=== PATIENT | female | born 1940 | race Caucasian/White ===

== ENCOUNTER 2016-12-02 15:49 | Emergency (ER) | payer MEDICARE, BC ==
--- NOTE | 2016-12-02 17:18 | EDM.PDOC ---
ED HISTORY OF PRESENT ILLNESS - General Chief Complaint: Respiratory Problem Stated Complaint: WEAKNESS, DIZZY WHEN WALKING Time Seen by Provider: 12/02/16 17:00 Source: Reports: Patient History Limitations: Reports: No limitations - History of Present Illness INITIAL COMMENTS - FREE TEXT/NARRATIVE: 76-year-old female arrives with weakness and malaise for the past 5-6 days, worse over the last 24 hours. It's much worse with activity, along with some vague shoulder and back discomfort. She has a fairly extensive cardiac history with an aortic valve replacement in 1998, and a double bypass in 2016. She's had no chest pain, abdominal pain, nausea or vomiting. She denies palpitations. No fever or chills or recent illness. Severity: moderate Worsens with: Reports: Other (Her symptoms are worse with activity, today she had difficulty walking down a long hallway.) Associated Symptoms: Reports: shortness of breath (Especially with activity), weakness (Especially in her legs). Denies: chest pain, fever/chills, headaches , loss of appetite - Related Data Allergies/ADRs: Allergies Allergy/AdvReac Type Severity Reaction Status Date / Time Penicillins Allergy Cannot Verified 12/02/16 16:27 Remember propoxyphene [From Darvon] Allergy Nausea and Verified 12/02/16 16:27 Vomiting Home Meds: Home Meds Calcium Carbonate [Calcium] 1 tab PO DAILY 12/02/16 [History] Cholecalciferol (Vitamin D3) [D3-2000] 1 tab PO DAILY 12/02/16 [History] Furosemide [Lasix] 40 mg PO DAILY 12/02/16 [History] Metoprolol Tartrate [Lopressor] 50 mg PO BID 12/02/16 [History] Valsartan/Hydrochlorothiazide [Diovan Hct 320-25 mg Tablet] 1 tab PO DAILY 12/02 [History] Warfarin [Coumadin] 2.5 mg PO SUTUWETHFRSA 12/02/16 [History] Warfarin [Coumadin] 5 mg PO MO 12/02/16 [History] amLODIPine [Norvasc] 5 mg PO PCDINNER 12/02/16 [History] atorvaSTATin [Lipitor] 40 mg PO Q48H 12/02/16 [History] Past Medical History HEENT History: Reports: None Cardiovascular History: Reports: Hypertension Respiratory History: Reports: SOB Gastrointestinal History: Reports: Chronic constipation [employer] History: Reports: Other (see below) Other OB/BYN History: hysterectomy Endocrine/Metabolic History: Reports: Obesity/BMI 30+ Oncologic (Cancer) History: Reports: None - Infectious Disease History Infectious Disease History: Reports: Chicken pox, Measles - Past Surgical History HEENT Surgical History: Reports: Cataract surgery Cardiovascular Surgical History: Reports: Coronary artery bypass, Other (see below) Other Cardiovascular Surgeries/Procedures: 1992 aortic valve replaced. double bypass Respiratory Surgical History: Reports: None GI Surgical History: Reports: None Endocrine Surgical History: Reports: None Oncologic Surgical History: Reports: Biopsy of breast Dermatological Surgical History: Reports: None Social & Family History - Tobacco Use Smoking Status *Q: Never Smoker Second Hand Smoke Exposure: No - Caffeine Use Caffeine Use: Reports: Coffee - Recreational Drug Use Recreational Drug Use: No ED ROS GENERAL - Review of Systems Review Of Systems: See Below Constitutional: Reports: malaise, weakness. Denies: fever, chills HEENT: Reports: No symptoms Respiratory: Reports: shortness of breath (Especially with activity) Cardiovascular: Denies: Chest pain, Palpitations GI/Abdominal: Denies: Abdominal pain, Nausea, Vomiting : Reports: no symptoms Musculoskeletal: Reports: no symptoms Skin: Reports: no symptoms Neurological: Reports: weakness. Denies: dizziness, headache, paresthesia, syncope Psychiatric: Reports: No symptoms ED EXAM, GENERAL - Physical Exam Exam: See Below Exam Limited By: No limitations General Appearance: alert, no apparent distress Eye Exam: bilateral eye: EOMI Respiratory/Chest: no respiratory distress, lungs clear Cardiovascular: regular rate, rhythm, bradycardia, systolic murmur (1+ systolic murmur, holosystolic) GI/Abdominal: soft, non tender Back Exam: normal inspection Extremities: pedal edema (Patient has symmetric bilateral nonpitting swelling of the lower extremities) Neurological: alert, oriented, no motor/sensory deficits Psychiatric: normal affect, normal mood Skin Exam: Warm, Dry Course - Vital Signs Last Recorded V/S: Last Vital Signs Temp 99.1 F 12/02/16 16:21 Pulse 34 L 12/02/16 19:22 Resp 16 12/02/16 19:22 BP 154/55 H 12/02/16 19:22 Pulse Ox 95 12/02/16 18:00 - Orders/Labs/Meds Orders: Active Orders 24 hr Category Date Time Status EKG Documentation Completion [RC] ASDIRECTED Care 12/02/16 17:12 Active Chest 2V [CR] Routine Exams 12/02/16 17:12 Taken EKG 12 Lead [EK] Routine Ther 12/02/16 17:12 Ordered Labs: Laboratory Tests 12/02/16 12/02/16 12/02/16 Range/Units 17:12 17:12 17:12 WBC 8.1 (4.5-11.0) K/uL RBC 3.74 (3.30-5.50) M/uL Hgb 10.0 L (12.0-15.0) g/dL Hct 33.0 L (36.0-48.0) % MCV 88 (80-98) fL MCH 27 (27-31) pg MCHC 30 L (32-36) % Plt Count 221 (150-400) K/uL Neut % (Auto) 78 H (36-66) % Lymph % (Auto) 11 L (24-44) % [place] % (Auto) 10 H (2-6) % Eos % (Auto) 1 L (2-4) % Baso % (Auto) 1 (0-1) % PT 27.0 H (9.5-12.0) sec INR 2.48 H (0.80-1.20) Sodium 143 (140-148) mmol/L Potassium 4.4 (3.6-5.2) mmol/L Chloride 107 (100-108) mmol/L Carbon Dioxide 27 (21-32) mmol/L Anion Gap 9.0 (5.0-14.0) mmol/L BUN 52 H (7-18) mg/dL Creatinine 1.8 H (0.6-1.0) mg/dL Est Cr Clr Drug Dosing 21.03 mL/min Estimated GFR (MDRD) 27 L (>60) Glucose 95 (74-106) mg/dL Calcium 8.8 (8.5-10.1) mg/dL Total Bilirubin 0.3 (0.2-1.0) mg/dL AST 63 H (15-37) U/L ALT 84 H (12-78) U/L Alkaline Phosphatase 109 (46-116) U/L Troponin I < 0.017 (0.000-0.056) ng/mL Total Protein 7.4 (6.4-8.2) g/dL Albumin 3.6 (3.4-5.0) g/dL Globulin 3.8 H (2.3-3.5) g/dL Albumin/Globulin Ratio 1.0 L (1.2-2.2) - Re-Assessments/Exams Free Text/Narrative Re-Assessment/Exam: 12/02/16 17:17 When I went into the patient's room her monitor showed a type II block which resolved while I was talking to her. An EKG was obtained, along with a CBC, CMP , troponin, ProTime and two-view chest x-ray. Patient was kept on the monitor to see if we can capture the arrhythmia. 12/02/16 18:49 EKG showed a Mobitz type II block, every other atrial contraction wasn't captured. Troponin was 0. Chest x-ray showed some chronic scarring, possible mild congestive failure. I explained to the patient that she needed a cardiac evaluation for a possible pacemaker, she wanted to go back to [facility] where she received all her care 12/02/16 19:00 Cardiology recommended stopping the metoprolol for 2 days and rechecking when she returns to the [facility] on Sunday. All copies of lab and x-ray of were made for the patient. Departure - Departure Time of Disposition: 19:26 Disposition: Home, Self-Care 01 Condition: fair Clinical Impression: Mobitz type 2 second degree atrioventricular block Instructions: Second-Degree Atrioventricular Block, Heartbeats (How the Heart Works) Referrals: PCP,None [Primary Care Provider] - Forms: ED Department Discharge Care Plan Goals: Stop metoprolol until recheck by cardiology at [facility]. Call [phone] on Sunday morning to get an appointment time, they will be expecting your call. Return sooner if worsening or concerns. Continue your other medications. - My Orders Last 24 Hours: My Active Orders 12/02/16 17:12 EKG Documentation Completion [RC] ASDIRECTED Chest 2V [CR] Routine EKG 12 Lead [EK] Routine - Assessment/Plan Last 24 Hours: My Active Orders 12/02/16 17:12 EKG Documentation Completion [RC] ASDIRECTED Chest 2V [CR] Routine EKG 12 Lead [EK] Routine
[2016-12-02 19:24] VITALS: BP 154/55
--- NOTE | 2016-12-04 09:27 | CR ---
Two-view chest There is mild cardiac enlargement. The vascular structures are within normal limits. There is eviden ce of a small left pleural effusion. Poorly defined density left lung base may reflect basilar scarr ing. The left basilar infiltrate cannot be excluded. Intact sternal wires are demonstrated. Impression: 1. Evidence for left basilar infiltrate as well as small effusion. Recommend correlation for underly ing pneumonia. Comparison with prior studies which are not available would be useful.
== END 2016-12-02 19:26 | disposition home or self-care (01) ==
LOC: JP.ED 15:49
DX: I44.1 Atrioventricular block, second degree (principal); I10 Essential (primary) hypertension; Z88.0 Allergy status to penicillin; Z88.8 Allergy status to other drugs, medicaments and biological substances; Z79.899 Other long term (current) drug therapy; Z79.01 Long term (current) use of anticoagulants; Z95.1 Presence of aortocoronary bypass graft; Z90.710 Acquired absence of both cervix and uterus
CPT/HCPCS: 36415; 71020; 71020-26; 80053; 84484; 85025; 85610; 93005; 93010; 99284; 99285-25

== ENCOUNTER 2024-07-20 12:53 | Inpatient (IN) | payer MEDICARE, BC ==
[2024-07-20 14:11] LABS: BASOPHILS ABSOLUTE AUTO 0.03 K/uL (0.00-0.10); BASOPHILS PERCENT AUTO 0.5 % (0.1-1.3); EOSINOPHILS ABSOLUTE AUTO 0.06 K/uL (0.00-0.40); HEMATOCRIT 26.9 % (34.3-46.0); HEMOGLOBIN 8.4 g/dL (11.2-15.5); IMMATURE GRAN ABSOLUTE AUTO 0.04 K/uL (0.00-0.23); IMMATURE GRAN PERCENT AUTO 0.7 % (0.0-0.7); LYMPHOCYTES ABSOLUTE AUTO 0.42 K/uL (0.8-3.3); LYMPHOCYTES PERCENT AUTO 6.9 % (11.4-47.7); MEAN CORPUSCULAR HEMOGLOBIN 29.5 pg (31.6-35.5); MEAN CORPUSCULAR HGB CONC 31.2 g/dL (31.6-35.5); MEAN CORPUSCULAR VOLUME 94.4 fL (81.4-99.0); MONOCYTES ABSOLUTE AUTO 0.91 K/uL (0.20-0.90); MONOCYTES PERCENT AUTO 14.9 % (3.3-12.6); NEUTROPHILS ABSOLUTE AUTO 4.66 K/uL (1.0-7.6); PLATELET COUNT,PLT 120 K/uL (130-375); RED BLOOD CELL COUNT 2.85 M/uL (3.77-5.24); WHITE BLOOD CELL COUNT,WBC 6.1 K/uL (3.2-11.0)
[2024-07-20 14:28] LABS: CALCIUM 10.7 mg/dL (8.5-10.1); CREATININE 3.1 mg/dL (0.6-1.0); EST CRCL DRUG DOSING (CG) 10.87 mL/min; POTASSIUM,K 4.5 mmol/L (3.6-5.2)
[2024-07-20 14:33] LABS: ANION GAP 13.5 mmol/L (5.0-14.0)
[2024-07-20 15:43] LABS: INR 2.2
[2024-07-20] MEDS ORDERED: Ondansetron 4 MG/2 ML SDV IV PRN (16:55)
[2024-07-20] MEDS ORDERED: Magnesium Hydroxide 400 MG/5 ML Susp 30 ML Cup PO PRN (16:55)
[2024-07-20] MEDS ORDERED: Ondansetron 4 MG Tab.DIS PO PRN (16:55)
[2024-07-20] MEDS: Bumetanide 1 MG/4 ML MDV IVPUSH ONE (17:05)
[2024-07-20] MEDS ORDERED: FLU (Fluad Triv) TS24-25 (65UP)/MF59C/PF 45 MCG/0.5 ML Syringe IM ONE (17:30)
[2024-07-20] MEDS: Warfarin 2.5 MG Tab PO SCH (20:54)
[2024-07-20] MEDS: traZODone 50 MG Tab PO SCH (20:54)
[2024-07-21] MEDS: Acetaminophen 325 MG Tab PO PRN (03:12)
[2024-07-21 05:03] LABS: INR 2.2; PROTHROMBIN TIME 21.4 sec (9.2-10.6)
[2024-07-21 05:13] LABS: IRON,FE 45 ug/dL (50-170); PERCENT FE SATURATION 18 % (20-55); TOTAL IRON BINDING CAPACITY 247 ug/dl (250-450)
[2024-07-21 05:18] LABS: CREATININE 2.9 mg/dL (0.6-1.0); EST CRCL DRUG DOSING (CG) 11.62 mL/min; POTASSIUM,K 4.3 mmol/L (3.6-5.2)
[2024-07-21 05:21] LABS: ANION GAP 10.3 mmol/L (5.0-14.0)
[2024-07-21] MEDS: Bumetanide 2.5 MG/10 ML MDV IVPUSH SCH (06:28)
[2024-07-21] MEDS: Cholecalciferol (Vitamin D3) 25 MCG Tab PO SCH (08:34)
[2024-07-21] MEDS: Spironolactone 25 MG Tab PO SCH (08:34)
[2024-07-21] MEDS: Metoprolol Succinate 50 MG Tab.ER PO SCH (08:36)
[2024-07-21] MEDS: Calcium Carbonate/Vitamin D3 1500 MG-400 Units Tab PO SCH (08:36)
[2024-07-21] MEDS: FLU (Fluad Triv) TS24-25 (65UP)/MF59C/PF 45 MCG/0.5 ML Syringe IM ONE (08:37)
[2024-07-21] MEDS: Sodium Ferric Gluconate Cmplex 250 MG in Sodium Chloride 0.9% 100 ML IV ONE (10:40)
[2024-07-21] MEDS ORDERED: Bumetanide 2.5 MG/10 ML MDV IVPUSH SCH (16:00)
[2024-07-21] MEDS: Bumetanide 1 MG/4 ML MDV IVPUSH SCH (16:01)
[2024-07-21] MEDS ORDERED: atorvaSTATin 20 MG Tab PO SCH (21:00)
[2024-07-21] MEDS: atorvaSTATin 20 MG Tab PO SCH (21:09)
[2024-07-22 06:05] LABS: CALCIUM 10.1 mg/dL (8.5-10.1); EST CRCL DRUG DOSING (CG) 11.24 mL/min; POTASSIUM,K 3.9 mmol/L (3.6-5.2)
[2024-07-22 06:07] LABS: INR 2.4; PROTHROMBIN TIME 24.1 sec (9.2-10.6)
[2024-07-22 06:11] LABS: ANION GAP 11.9 mmol/L (5.0-14.0)
[2024-07-22] MEDS: Bumetanide 1 MG/4 ML MDV IVPUSH SCH (06:25)
[2024-07-22] MEDS: Aspirin 81 MG Tab.EC PO SCH (08:06)
[2024-07-22] MEDS: Metoprolol Succinate 25 MG Tab.ER PO SCH (08:07)
[2024-07-22] MEDS: Sodium Ferric Gluconate Cmplex 250 MG in Sodium Chloride 0.9% 100 ML IV ONE (11:30)
[2024-07-23 06:11] LABS: CREATININE 2.8 mg/dL (0.6-1.0); EST CRCL DRUG DOSING (CG) 12.04 mL/min; POTASSIUM,K 4.1 mmol/L (3.6-5.2)
[2024-07-23 06:13] LABS: ANION GAP 14.1 mmol/L (5.0-14.0)
[2024-07-23 06:19] LABS: PROTHROMBIN TIME 28.9 sec (9.2-10.6)
[2024-07-23] MEDS: Warfarin 2.5 MG Tab PO SCH (21:04)
[2024-07-23] MEDS: Melatonin 3 MG Tab PO SCH (21:04)
[2024-07-23] MEDS ORDERED: Zinc Oxide 20% Oint 56.7 GM Tube TOP PRN (21:08)
[2024-07-23] MEDS ORDERED: Dimethicone 20%/Zinc Oxide 25% 56 GM Spray Bottle TOP PRN (21:33)
[2024-07-24 05:43] LABS: INR 2.6; PROTHROMBIN TIME 25.1 sec (9.2-10.6)
[2024-07-24 05:51] LABS: A/G RATIO 1.4 (1.2-2.2); ALANINE AMINOTRANSFERASE,ALT 18 U/L (12-78); ALBUMIN 3.1 g/dL (3.4-5.0); ALKALINE PHOSPHATASE 106 U/L (46-116); ANION GAP 11.3 mmol/L (5.0-14.0); ASPARTATE AMNIOTRANSFERASE,AST 32 U/L (15-37); BILIRUBIN TOTAL 1.9 mg/dL (0.2-1.0); BLOOD UREA NITROGEN,BUN 90 mg/dL (7-18); CALCIUM 10.2 mg/dL (8.5-10.1); CARBON DIOXIDE,CO2 31 mmol/L (21-32); CHLORIDE,CL 96 mmol/L (100-108); CREATININE 2.9 mg/dL (0.6-1.0); EST CRCL DRUG DOSING (CG) 11.62 mL/min; ESTIMATED GFR 16 mL/min (>60); GLUCOSE RANDOM 93 mg/dL (74-106); POTASSIUM,K 4.3 mmol/L (3.6-5.2); PROTEIN TOTAL,TP 5.4 g/dL (6.4-8.2); SODIUM,NA 134 mmol/L (140-148)
[2024-07-24] MEDS: Albuterol/Ipratropium 3.0-0.5 MG/3 ML Neb Soln NEB PRN (06:30)
[2024-07-24] MEDS ORDERED: Acetylcysteine 20% 200 MG/ML 30 ML Nebulizer Soln SDV NEB SCH (13:00)
[2024-07-24] MEDS: Acetylcysteine 20% 200 MG/ML 4 ML Nebulizer Soln SDV NEB SCH (14:35)
[2024-07-25 06:04] LABS: CREATININE 2.8 mg/dL (0.6-1.0); EST CRCL DRUG DOSING (CG) 12.04 mL/min; MAGNESIUM 1.9 mg/dL (1.8-2.4); POTASSIUM,K 4.1 mmol/L (3.6-5.2)
[2024-07-25 06:05] LABS: INR 2.2; PROTHROMBIN TIME 22.1 sec (9.2-10.6)
[2024-07-25 06:11] LABS: ANION GAP 11.1 mmol/L (5.0-14.0)
[2024-07-25] MEDS: Warfarin 2.5 MG Tab PO SCH (20:06)
[2024-07-26] MEDS: Codeine/guaiFENesin 10-100 MG/5 ML Syrup 5 ML Cup PO PRN (01:33)
[2024-07-26 05:44] LABS: POTASSIUM,K 4.1 mmol/L (3.6-5.2)
[2024-07-26 05:45] LABS: CALCIUM 9.9 mg/dL (8.5-10.1); CREATININE 2.7 mg/dL (0.6-1.0); EST CRCL DRUG DOSING (CG) 12.49 mL/min
[2024-07-26 05:47] LABS: ANION GAP 10.1 mmol/L (5.0-14.0)
[2024-07-26 05:51] LABS: INR 2.3; PROTHROMBIN TIME 22.6 sec (9.2-10.6)
[2024-07-26] MEDS: LORazepam 0.5 MG Tab PO PRN (10:56)
[2024-07-26] MEDS: Sodium Chloride 0.9% 10 ML Syringe IV PRN (14:00)
[2024-07-27 05:53] LABS: CALCIUM 9.8 mg/dL (8.5-10.1); CREATININE 2.6 mg/dL (0.6-1.0); EST CRCL DRUG DOSING (CG) 12.97 mL/min
[2024-07-27 05:56] LABS: INR 2.4; PROTHROMBIN TIME 23.8 sec (9.2-10.6)
[2024-07-27] MEDS: Sennosides/Docusate Sodium 50-8.6 MG Tab PO PRN (11:36)
[2024-07-28] MEDS: Bumetanide 1 MG Tab PO SCH (07:21)
[2024-07-28 08:33] VITALS: BP 113/48; PULSE 72
[2024-07-28] MEDS ORDERED: Bumetanide 1 MG Tab PO SCH (14:00)
== END 2024-07-28 08:45 | disposition hospice, home (50) | DRG 291 ==
LOC: JP.ED 12:53 → EEVIPCON 16:21 → JP.MS 16:21
PROVIDERS: ADMIT Internal Medicine; ATTEND Hospitalist
DX: I13.0 Hypertensive heart and chronic kidney disease with heart failure and stage 1 through stage 4 chronic kidney disease, or unspecified chronic kidney disease (principal); I50.43 Acute on chronic combined systolic (congestive) and diastolic (congestive) heart failure; N18.9 Chronic kidney disease, unspecified; I48.91 Unspecified atrial fibrillation; I50.33 Acute on chronic diastolic (congestive) heart failure; N18.4 Chronic kidney disease, stage 4 (severe); E87.1 Hypo-osmolality and hyponatremia; I25.10 Atherosclerotic heart disease of native coronary artery without angina pectoris; K59.09 Other constipation; I48.0 Paroxysmal atrial fibrillation; E66.9 Obesity, unspecified; N28.89 Other specified disorders of kidney and ureter; H54.7 Unspecified visual loss; Z66 Do not resuscitate; Z51.5 Encounter for palliative care; Z95.0 Presence of cardiac pacemaker; Z88.0 Allergy status to penicillin; Z88.2 Allergy status to sulfonamides; Z88.8 Allergy status to other drugs, medicaments and biological substances; Z79.899 Other long term (current) drug therapy; Z79.01 Long term (current) use of anticoagulants; Z79.82 Long term (current) use of aspirin; Z68.33 Body mass index [BMI] 33.0-33.9, adult; Z90.89 Acquired absence of other organs; Z98.49 Cataract extraction status, unspecified eye; Z95.1 Presence of aortocoronary bypass graft; Z95.2 Presence of prosthetic heart valve; Z90.710 Acquired absence of both cervix and uterus; Z98.890 Other specified postprocedural states
CPT/HCPCS: 36415; 71046; 80048; 80053; 82728; 83550; 83735; 85025; 85610; 90653; 94640; 97110-GO; 97161-GP; 97165-GO; 97530-GP; 97535-GO; 99222; 99232; 99238; 99285; A9270-GY; G0008; J2916; J3490; J7620